=== PATIENT | male | born 1940 | race Caucasian/White ===

== ENCOUNTER 2022-05-08 09:54 | Emergency (ER) | payer MEDICARE ==
[~2022-05-08] VITALS: Ht 162.6 cm; Wt 81.8 kg
[~2022-05-08 09:54] MED LIST: ASPI325T6 PO; ASPIRIN 32325 MG/TAB PO; ASPIRIN 81M81 MG/TA2 PO; CARDIZEM CD 24240 MG PO; CARDURA 8MG TAB8 MG PO; CIPRO 500MG TA500 MG PO; COLACE 100100 MG/CAP PO; DIGITEK0.125 MG PO; DULCOLAX TAB5 MG PO; DUO-KAPS1 CAP PO; LEVEMIR100 U/ML SQ; NORCO 325 MG-51 TAB PO; NORCO 325 MG-7.1 TAB PO; NOVOLOG 100U100 U/M1 SQ; PRAVACHOL10 MG PO; PRINIVIL5 MG PO; TYLENOL 325MG325 MG PO; TYLENOL 500MG500 MG PO; ULTRAM 50MG TAB50 MG PO; XALATAN EYE DROPS OU; ZANTAC 150MG T150 MG PO
[2022-05-08 10:01] VITALS: TEMP 97.6
[2022-05-08 13:15] VITALS: BP 126/97; PULSE 74
== END 2022-05-08 13:23 | disposition home or self-care (01) ==
LOC: COL.ER 09:54
DX: K59.00 Constipation, unspecified (principal)